=== PATIENT | female | born 1990 | race Two or more races ===

== ENCOUNTER 2024-01-12 05:36 | Inpatient (IN) | payer OTHER ==
[~2024-01-12] VITALS: Ht 160 cm; Wt 90.3 kg
[2024-01-12] MEDS ORDERED: ERYTHROMYCIN BASE 1 GM TUBE OP ONE ×2 (05:53→07:15)
[2024-01-12] MEDS ORDERED: OXYTOCIN 20 UNITS/1000ML RL PIGGYBAG IV ONE (05:54)
[2024-01-12] MEDS ORDERED: CHLORHEXIDINE GLUCONATE 120 ML BOTTLE TOP ONE ×2 (05:54→08:00)
[2024-01-12] MEDS ORDERED: AMPICILLIN SODIUM 2,000 MG VIAL ONE (05:54)
[2024-01-12] MEDS ORDERED: AMPICILLIN SODIUM 2,000 MG VIAL IV ONE (06:00)
[2024-01-12] MEDS ORDERED: RINGERS SOLUTION,LACTATED 1,000 ML IV SCH (06:00)
[2024-01-12 06:25] LABS: HEMOGLOBIN 13.3 g/dL (12.0-15.00); MEAN CORPUSCULAR HEMOGLOBIN 29.8 pg (27.00-32.0); MEAN CORPUSCULAR HGB CONC 35.1 g/dl (32.0-36.0); PLATELET COUNT 227 K/uL (150-450); RED BLOOD COUNT 4.47 M/uL (4.00-6.00)
[2024-01-12] MEDS ORDERED: LIDOCAINE HCL 1% 10ML VIAL ONE (06:36)
[2024-01-12 06:56] LABS: URINE APPEARANCE Cloudy; URINE BILIRRUBIN Negative (NEGATIVE); URINE BLOOD Large; URINE COLOR Dark Yellow; URINE GLUCOSE Negative (NEGATIVE); URINE KETONE Trace (NEGATIVE); URINE LEUKOCYTE Trace; URINE NITRATE Negative; URINE PROTEIN 30 (NEGATIVE)
[2024-01-12 06:58] LABS: URINE BACTERIA 275.9 uL (0.0-1933); URINE EPITHELIAL CELLS 21.3 uL (0.0-38.8); URINE RBC 1260.6 uL (0.0-20.8); URINE WBC 45.2 uL (0.0-23.2)
[2024-01-12] MEDS ORDERED: IBUprofen 400 MG TABLET PO PRN (07:15)
[2024-01-12 07:17] LABS: INR < 0.93; PARTIAL THROMBOPLASTIN TIME 30.1 SECONDS (22.0-34.0); PROTHROMBIN TIME 9.7 SECONDS (9.0-11.5)
[2024-01-12 07:29] LABS: ALBUMIN 2.5 gm/dL (3.4-5.0); BILIRUBIN TOTAL 0.78 mg/dL (0.3-1.2); CALCIUM 9.2 mg/dL (8.5-10.1); CREATININE SERUM 0.53 mg/dL (0.55-1.02); GFR 132.85; GLOBULINA 4.1 G/DL (2.4-3.5); POTASSIUM 4.32 mEq/L (3.5-5.1); TOTAL PROTEIN 6.6 gm/dL (6.4-8.2)
[2024-01-12] MEDS ORDERED: LIDOCAINE HCL 1% 10ML VIAL IJ ONE (08:00)
[2024-01-12] MEDS ORDERED: OXYTOCIN 1,000 ML IV SCH (08:00)
[2024-01-12 08:25] LABS: ABG PH 7.376 (7.35-7.45); ABG pCO2 35.3 mmHg (35-45); BASE EXCESS -4.2 mmol/l; BICARBONATE 20.2 mmol/l (23-25); SaO2 46.3 %; Tco2 21.3 mmol/l
[2024-01-12] MEDS ORDERED: PNV,CALCIUM 72/IRON/FOLIC ACID 1 TAB TABLET PO SCH (09:00)
[2024-01-12] MEDS ORDERED: AMPICILLIN SODIUM 1,000 MG VIAL IV SCH (09:00)
[2024-01-12] MEDS ORDERED: PNV,CALCIUM 72/IRON/FOLIC ACID 1 TAB TABLET PO ONE (09:24)
[2024-01-12] MEDS ORDERED: OXYTOCIN 10 UNITS/ML VIAL ONE (10:09)
[2024-01-12 12:40] LABS: HEMATOCRIT 35.7 % (36.0-45.00); HEMOGLOBIN 12.6 g/dL (12.0-15.00); MEAN CELL VOLUME 86.3 fL (80.00-100.00); MEAN CORPUSCULAR HEMOGLOBIN 30.6 pg (27.00-32.0); MEAN CORPUSCULAR HGB CONC 35.4 g/dl (32.0-36.0); PLATELET COUNT 242 K/uL (150-450); RED BLOOD COUNT 4.14 M/uL (4.00-6.00); RED CELL DISTRIBUTION WIDTH 14.2 % (11.5-14.5)
[2024-01-12 14:49] LABS: ABG PO2 26.7 mmHg (80-100); o2 21 %
== END 2024-01-14 13:52 | disposition home or self-care (01) | DRG 807 ==
LOC: LDR 05:36 → OB/GYN 05:36
PROVIDERS: ADMIT Obstetrics & Gynecology; ATTEND Obstetrics & Gynecology
PROC: 10E0XZZ Delivery of Products of Conception, External Approach (ICD-10-PCS; principal; 2024-01-12)
PROC: 0KQM0ZZ Repair Perineum Muscle, Open Approach (ICD-10-PCS; 2024-01-12)
PROC: 4A1HXCZ Monitoring of Products of Conception, Cardiac Rate, External Approach (ICD-10-PCS; 2024-01-12)
DX: O70.1 Second degree perineal laceration during delivery (principal); Z37.0 Single live birth; Z3A.38 38 weeks gestation of pregnancy; Z20.822 Contact with and (suspected) exposure to COVID-19